=== PATIENT | male | born 1975 | race American Indian/Alaskan Native ===

== ENCOUNTER 2021-08-08 22:34 | Emergency (ER) | payer MEDICAID ==
[~2021-08-08] VITALS: Ht 175.3 cm; Wt 90.7 kg
[2021-08-08 23:12] VITALS: BP 136/94
[2021-08-09 01:02] LABS: BUN/Creatinine Ratio 9.8; Potassium 3.7 mmol/L (3.5-5.1)
[2021-08-09 01:03] LABS: Albumin 2.9 g/dL (3.4-5.0); Bilirubin, Total 0.2 mg/dL (0.2-1.0); Calcium 8.3 mg/dL (8.5-10.1); Total Protein 7.6 g/dL (6.4-8.2)
[2021-08-09 01:14] LABS: Basophils # (auto) 0 10 ^3/uL (0-0.2); Basophils % (auto) 0.5 % (0.0-2.0); Eosinophils # (auto) 0.1 10 ^3/uL (0-0.8); Eosinophils % (auto) 2.3 % (0.0-7.0); Hematocrit 36.7 % (41.0-53.0); Hemoglobin 12.4 g/dL (13.5-17.5); Lymphocytes # (auto) 2.7 10 ^3/uL (0.4-5.4); Lymphocytes % (auto) 45.4 % (10.0-50.0); Mean Corpuscular Hemoglobin 30.7 pg (28.0-32.0); Mean Corpuscular Hgb Conc. 33.8 g/dL (32.0-36.0); Monocytes # (auto) 0.6 10 ^3/uL (0-1.3); Monocytes % (auto) 10.9 % (0.0-12.0); Neutrophils # (auto) 2.4 10 ^3/uL (1.6-8.6); Neutrophils % (auto) 40.9 % (37.0-80.0); Nucleated Red Blood Cells % 0.2 %; Red Blood Cells 4.03 10^6/uL (4.5-5.90); White Blood Cell 5.9 10^3/uL (4.4-10.8)
== END 2021-08-09 08:10 | disposition home or self-care (01) ==
LOC: ER 22:34 → EDBD 22:34 → ER 08-09 08:10
DX: R07.89 Other chest pain (principal); E11.9 Type 2 diabetes mellitus without complications
CPT/HCPCS: 36415; 80053; 83880; 84484; 85025; 93005

== ENCOUNTER → 2021-09-10 | Emergency (ER) | payer MEDICAID ==
[2021-09-10 23:28] VITALS: BP 142/94
== END | disposition left against medical advice (07) ==
LOC: EDUNIT# 22:26 → ER 22:35 → EDBD 22:35
DX: R07.89 Other chest pain (principal); Z53.21 Procedure and treatment not carried out due to patient leaving prior to being seen by health care provider
CPT/HCPCS: 93005